=== PATIENT | female | born 1985 | race Caucasian/White ===

== ENCOUNTER 2020-06-06 12:50 | Emergency (ER) | payer BC ==
[~2020-06-06] VITALS: Ht 165.1 cm; Wt 77.1 kg
[2020-06-06 12:56] VITALS: BP 132/84
--- NOTE | 2020-06-06 13:14 | NUR ---
35 Y/O FEMALE, 7 WEEKS , C/O VAGINAL BLEEDING THAT BEGAN ON WEDNESDAY AND WORSENED LAST NIGHT. PATIENT HAS SOAKED UP 1 PAD EVERY FEW HOURS. DENIES ANY DIZZINESS AND LIGHTHEADEDNESS. C/O ABD PAIN 5/10, DULL AND CRAMPING IN CHARACTER. DENIES ANY FEVER/CHILLS, MILD NAUSEA, NO DYSURIA NOTED. PATIENT TOOK 500MG TYLENOL TODAY FOR CRAMPING PAIN NKDA
--- NOTE | 2020-06-06 13:45 | NUR ---
US AT BEDSIDE
[2020-06-06 14:05] LABS: BASOPHILS % (AUTO) 0.4 % (0.0-2.0); EOSINOPHILS # (AUTO) 0.2 K/uL (0-0.4); EOSINOPHILS % (AUTO) 2.1 % (0.0-4.0); HEMATOCRIT 38.3 % (36-48); HEMOGLOBIN 12.4 g/dL (12.0-16.0); LYMPHOCYTES # (AUTO) 2.8 K/uL (2.5-16.5); LYMPHOCYTES % (AUTO) 31.3 % (20.5-51.1); MEAN CORPUSCULAR HEMOGLOBIN 25 pg (27-31); MEAN CORPUSCULAR HGB CONC 32 g/dL (33-37); MEAN CORPUSCULAR VOLUME 78.2 fL (80-94); MONOCYTES # (AUTO) 0.6 K/uL (0.8-1.0); MONOCYTES % (AUTO) 6.9 % (1.7-9.3); NEUTROPHILS # (AUTO) 5.3 K/uL (1.8-7.7); NEUTROPHILS % (AUTO) 59.3 % (42.2-75.2); PLATELET COUNT (AUTO) 293 K/uL (140-450); RED BLOOD CELL COUNT(AUTO) 4.89 MIL/uL (4.20-5.40); RED CELL DISTRIBUTION WIDTH 15.3 % (11.6-13.7)
[2020-06-06 14:12] LABS: BILIRUBIN,URINE NEGATIVE (NEGATIVE); BLOOD, URINE 3+ (NEGATIVE); LEUKOCYTE ESTERASE ,URINE NEGATIVE (NEGATIVE); NITRITE, URINE NEGATIVE (NEGATIVE); PH,URINE 5.5 (5.0-9.0); UGLUCOSE 3+ (NEGATIVE)
[2020-06-06 14:52] LABS: APPEARANCE,URINE BLOODY (CLEAR); COLOR,URINE SLIGHT BLOODY (YELLOW); RBC,URINE TOO NUMEROUS TO COUN /HPF (0-5); WBC,URINE NONE SEEN /HPF (0-5)
[2020-06-06 14:53] VITALS: BP 132/84
--- NOTE | 2020-06-06 14:54 | NUR ---
Patient discharged with v/s stable. Written and verbal after care instructionABOUT THREATENED MISCARRIAGE given and explained. Patient verbalized understanding. Ambulatory with steady gait. All questions addressed prior to discharge. Advised to follow up with PMD.
== END 2020-06-06 14:54 | disposition home or self-care (01) ==
LOC: MED 12:50
DX: O20.0 Threatened abortion (principal); E11.9 Type 2 diabetes mellitus without complications; E07.9 Disorder of thyroid, unspecified; Z3A.01 Less than 8 weeks gestation of pregnancy
CPT/HCPCS: 36415; 76817; 81001; 84702; 85025; 86900; 86901; 99284

== ENCOUNTER 2021-01-21 21:17 | Emergency (ER) | payer BC ==
[~2021-01-21] VITALS: Ht 165.1 cm; Wt 77.1 kg
[2021-01-21 21:24] VITALS: BP 105/52
--- NOTE | 2021-01-21 21:28 | NUR ---
TO LOBBY FOLLOWING TRIAGE
--- NOTE | 2021-01-21 22:13 | NUR ---
PT TAKEN TO BED #11
--- NOTE | 2021-01-21 22:54 | NUR ---
US IN PROGRESS, PENDING LABS
[2021-01-21 23:01] LABS: APPEARANCE,URINE CLEAR (CLEAR); BILIRUBIN,URINE NEGATIVE (NEGATIVE); BLOOD, URINE NEGATIVE (NEGATIVE); COLOR,URINE YELLOW (YELLOW); LEUKOCYTE ESTERASE ,URINE TRACE (NEGATIVE); NITRITE, URINE NEGATIVE (NEGATIVE); PH,URINE 5.5 (5.0-9.0); UGLUCOSE NEGATIVE (NEGATIVE)
--- NOTE | 2021-01-21 23:01 | NUR ---
REPORTS ABDOMINAL PAIN IN LOWER ABDOMEN ONSET TODAY, REQUESTING EVAL DUE TO BEING 8 WEEKS . HX OF MISCARRIAGE X2. DENIES NAUSEA AND VOMITING. NO SOB OR CHEST PAIN. NO BLEEDING NOTED. PMHX DM AND HYPOTHYROID. NKA
[2021-01-21 23:09] LABS: RBC,URINE 0-5 /HPF (0-5); WBC,URINE 0-5 /HPF (0-5)
[2021-01-21] MEDS ORDERED: NITR100C7 PO (23:29)
[2021-01-21 23:32] LABS: BASOPHILS % (AUTO) 0.2 % (0.0-2.0); EOSINOPHILS # (AUTO) 0.2 K/uL (0-0.4); EOSINOPHILS % (AUTO) 2.2 % (0.0-4.0); HEMATOCRIT 32.5 % (36-48); HEMOGLOBIN 10.4 g/dL (12.0-16.0); LYMPHOCYTES % (AUTO) 38.8 % (20.5-51.1); MEAN CORPUSCULAR HEMOGLOBIN 22 pg (27-31); MEAN CORPUSCULAR HGB CONC 32 g/dL (33-37); MEAN CORPUSCULAR VOLUME 70.2 fL (80-94); MONOCYTES # (AUTO) 0.8 K/uL (0.8-1.0); MONOCYTES % (AUTO) 8.2 % (1.7-9.3); NEUTROPHILS # (AUTO) 5.2 K/uL (1.8-7.7); NEUTROPHILS % (AUTO) 50.6 % (42.2-75.2); PLATELET COUNT (AUTO) 324 K/uL (140-450); RED BLOOD CELL COUNT(AUTO) 4.63 MIL/uL (4.20-5.40); RED CELL DISTRIBUTION WIDTH 16.3 % (11.6-13.7); WHITE BLOOD COUNT (AUTO) 10.3 K/uL (4.8-10.8)
--- NOTE | 2021-01-21 23:34 | NUR ---
PT CLEARED FOR DISCHARGE. DR. ALBERTS PROVIDED WITH DISCHARGE INSTRUCTIONS AND MEDICATION ADMINISTRATION BY DR. ALBERTS. RX OF MACROBID PROVIDED.
[2021-01-21 23:57] LABS: ALBUMIN 3.4 g/dL (3.4-5.0); ANION GAP 12.5 (8-16); CARBON DIOXIDE 27.5 mmol/L (21-32); CREATININE 0.7 mg/dL (0.6-1.3); TOTAL BILIRUBIN 0.2 mg/dL (0.0-1.0)
== END 2021-01-21 23:34 | disposition home or self-care (01) ==
LOC: MED 21:17
DX: O23.41 Unspecified infection of urinary tract in pregnancy, first trimester (principal); E11.9 Type 2 diabetes mellitus without complications; E07.9 Disorder of thyroid, unspecified
CPT/HCPCS: 36415; 76801; 80053; 81001; 84702; 85025; 86900; 86901; 87086; 99284; Q0092